=== PATIENT | female | born 2000 | race Two or more races ===

== ENCOUNTER 2023-09-06 10:12 | Emergency (ER) | payer MEDICAID, OTHER ==
[~2023-09-06] VITALS: Ht 170.2 cm; Wt 64.7 kg
[2023-09-06 10:13] VITALS: BP 111/60; PULSE 94; RESP 16; O2SAT 99
== END 2023-09-06 11:56 | disposition left against medical advice (07) ==
LOC: ER 10:12
DX: O26.891 Other specified pregnancy related conditions, first trimester (principal); O21.9 Vomiting of pregnancy, unspecified; R10.9 Unspecified abdominal pain; Z3A.01 Less than 8 weeks gestation of pregnancy; Z53.21 Procedure and treatment not carried out due to patient leaving prior to being seen by health care provider